=== PATIENT | female | born 1990 | race Caucasian/White ===

== ENCOUNTER 2020-01-09 22:10 | Emergency (ER) | payer BC ==
[~2020-01-09] VITALS: Ht 162.6 cm; Wt 103.9 kg
[2020-01-09 22:26] VITALS: BP 115/69; Ht 162.6 cm; Wt 103.9 kg
== END 2020-01-09 23:23 | disposition home or self-care (01) ==
LOC: ED 22:10
DX: S91.012A Laceration without foreign body, left ankle, initial encounter (principal); W26.8XXA Contact with other sharp object(s), not elsewhere classified, initial encounter; Y93.89 Activity, other specified; Y92.89 Other specified places as the place of occurrence of the external cause; Y99.8 Other external cause status

== ENCOUNTER 2020-01-14 14:43 | Emergency (ER) | payer BC ==
[~2020-01-14] VITALS: Ht 162.6 cm; Wt 103.0 kg
[2020-01-14 14:50] VITALS: BP 133/76; Ht 162.6 cm; Wt 103.0 kg
== END 2020-01-14 15:37 | disposition home or self-care (01) ==
LOC: ED 14:43
DX: S91.012D Laceration without foreign body, left ankle, subsequent encounter (principal); X58.XXXD Exposure to other specified factors, subsequent encounter